=== PATIENT | female | born 1935 | race Hispanic/Latino ===

== ENCOUNTER 2018-06-26 08:02 | Day surgery (SDC) | payer MEDICARE ==
[2018-06-24 16:02] VITALS: BMI 28.1
[2018-06-26 08:28] VITALS: TEMP 97.8
[2018-06-26] MEDS ORDERED: Sodium Chloride 0.9% 1,000 ML IV SCH (08:45)
[2018-06-26] MEDS ORDERED: Propofol 10 mg/ml Inj (20 ML) ONE (09:52)
[2018-06-26 10:34] VITALS: RESP 16
[2018-06-26 12:08] VITALS: BP 114/77; PULSE 73; O2SAT 97
== END 2018-06-26 12:00 | disposition home or self-care (01) ==
LOC: ENDO 08:02
PROVIDERS: ATTEND Specialist
DX: K21.0 Gastro-esophageal reflux disease with esophagitis (principal); K31.7 Polyp of stomach and duodenum; K44.9 Diaphragmatic hernia without obstruction or gangrene; R68.81 Early satiety; J44.9 Chronic obstructive pulmonary disease, unspecified; I10 Essential (primary) hypertension
CPT/HCPCS: 43239; 88305; 88312; 88342; J2001; J2704; J7030; J7040